=== PATIENT | female | born 1950 | race Caucasian/White ===

== ENCOUNTER → 2019-12-04 09:19 | Outpatient (CLI) | payer MEDICARE, SELFPAY ==
--- NOTE | ~2019-12-04 | DEXA_ITS ---
Bone Density Report Name: Brenna Wilson Age: 69 Sex: Female Ethnicity: White Date of : 1950 Indication: postmenopausal osteoporosis; height loss; Referring Provider: Zack, Sidney Yin Study: Bone densitometry was performed. Exam Date: December 04, 2019 Accession number: [id number] Bone Density: Region BMD T-score Z-score Classification AP Spine (L1-L4) 0.655 -3.6 -1.5 Osteoporosis Femoral Neck (Left) 0.684 -1.5 0.3 Osteopenia Total Hip (Left) 0.688 -2.1 -0.6 Osteopenia Femoral Neck (Right) 0.655 -1.7 0.0 Osteopenia Total Hip (Right) 0.691 -2.1 -0.6 Osteopenia Total Hip Mean 0.690 -2.1 -0.6 Osteopenia World Health Organization criteria for BMD impression classify patients as: Normal (T-score at or above -1.0), Osteopenia (T-score between -1.0 and -2.5), or Osteoporosis (T-score at or below -2.5). 10-year Fracture Risk: FRAX not reported because: Some T-score for Spine Total or Hip Total or Femoral Neck at or below -2.5 Previous Exams: Region Exam Age BMD T-score BMD Change BMD Change Date g/cm2 vs Baseline vs Previous AP Spine(L1-L4) 12/04/2019 69 0.655 -3.6 -0.012 -0.012 01/28/2017 66 0.666 -3.5 Total Hip(Left) 12/04/2019 69 0.688 -2.1 -0.015 -0.015 01/28/2017 66 0.703 -2.0 Total Hip(Right) 12/04/2019 69 0.691 -2.1 -0.031* -0.031* 01/28/2017 66 0.722 -1.8 *Denotes significance at 95% confidence level, LSC for AP Spine = 0.022 g/cm2, LSC for Total Hip = 0.027 g/cm2 Clinical Information Provided by Patient: Patient maximum height was 62 Menopause Age: 50 Drinks caffeinated beverages Onset of menses at age 13 Number of children 2 Impression: The patient has osteoporosis, based on the Total Spine T-score. The BMD for the Total Hip(Right) decreased, changing by -0.031 since the last DXA exam. Discussion: INCREASED RISK OF FRACTURE. BONE DENSITY IS UNDESIRABLY LOW AT ONE OR MORE SKELETAL SITES, CONSISTENT WITH POSTMENOPAUSAL OSTEOPOROSIS. This patient's lowest T-score meets the World Health Organization's (WHO) criteria for osteoporosis at one or more sites (T-score -2.5 or below). In untreated patients, the risk of osteoporotic fracture increases approximately two-fold for each 1.0 SD decrease in T-score. Low bone density is not the only risk factor for fracture; also consider factors such as patient's age, frailty or poor health, risk of falling, risk of injury, previous oste
== END ==
PROVIDERS: PCP Internal Medicine; Visit Provider Internal Medicine
DX: M81.0 Age-related osteoporosis without current pathological fracture (principal); M85.89 Other specified disorders of bone density and structure, multiple sites
CPT/HCPCS: 77080

== ENCOUNTER → 2022-04-30 14:42 | Outpatient (CLI) | payer MEDICARE, SELFPAY ==
--- NOTE | ~2022-04-30 | MM_ITS ---
EXAMINATION: MM screening nick BI w shea HISTORY: Screening TECHNIQUE: Craniocaudal and mediolateral oblique 3-D tomosynthesis images were obtained and synthetic 2-D images were generated. CAD analysis was submitted and interpreted. COMPARISON: 02/11/2018 BREAST PARENCHYMAL COMPOSITION: The breasts are almost entirely fatty. FINDINGS: There is no evidence of suspicious mass, calcification, or architectural distortion to sugg est malignancy in either breast. There has been no suspicious interval change. IMPRESSION: 1. No mammographic evidence of malignancy. 2. Recommend routine screening mammography in one year. BI-RADS Category 1: Negative Reviewed, dictated and finalized at location A. APPLICATION DEVELOPER
--- NOTE | ~2022-04-30 | DEXA_ITS ---
Bone Density Report Name: LION BURGESS Age: 72 Sex: Female Ethnicity: White Date of : 1950 Indication: postmenopausal osteoporosis; height loss; Referring Provider: LAURITA, CARMEN Yin Study: Bone densitometry was performed. Exam Date: April 30, 2022 Accession number: [id number] Bone Density: Region BMD T-score Z-score Classification AP Spine (L1-L4) 0.672 -3.4 -1.2 Osteoporosis Femoral Neck (Left) 0.700 -1.3 0.6 Osteopenia Total Hip (Left) 0.685 -2.1 -0.5 Osteopenia Femoral Neck (Right) 0.686 -1.5 0.4 Osteopenia Total Hip (Right) 0.681 -2.1 -0.5 Osteopenia Total Hip Mean 0.683 -2.1 -0.5 Osteopenia World Health Organization criteria for BMD impression classify patients as: Normal (T-score at or above -1.0), Osteopenia (T-score between -1.0 and -2.5), or Osteoporosis (T-score at or below -2.5). 10-year Fracture Risk: FRAX not reported because: Some T-score for Spine Total or Hip Total or Femoral Neck at or below -2.5 Previous Exams: Region Exam Age BMD T-score BMD Change BMD Change Date g/cm2 vs Baseline vs Previous AP Spine(L1-L4) 04/30/2022 72 0.672 -3.4 0.006 0.017 12/04/2019 69 0.655 -3.6 -0.012 -0.012 01/28/2017 66 0.666 -3.5 Total Hip(Left) 04/30/2022 72 0.685 -2.1 -0.018 -0.003 12/04/2019 69 0.688 -2.1 -0.015 -0.015 01/28/2017 66 0.703 -2.0 Total Hip(Right) 04/30/2022 72 0.681 -2.1 -0.041* -0.010 12/04/2019 69 0.691 -2.1 -0.031* -0.031* 01/28/2017 66 0.722 -1.8 *Denotes significance at 95% confidence level, LSC for AP Spine = 0.022 g/cm2, LSC for Total Hip = 0.027 g/cm2 Clinical Information Provided by Patient: Has used the following medications: Vitamin D Patient maximum height was 62 Menopause Age: 50 Drinks caffeinated beverages Onset of menses at age 13 Number of children 2 Impression: The patient has osteoporosis, based on the Total Spine T-score. No significant bone loss was observed. Discussion: INCREASED RISK OF FRACTURE. BONE DENSITY IS UNDESIRABLY LOW AT ONE OR MORE SKELETAL SITES, CONSISTENT WITH POSTMENOPAUSAL OSTEOPOROSIS. This patient's lowest T-score meets the World Health Organization's (WHO) criteria for osteoporosis at one or more sites (T-score -2.5 or below). In untreated patients, the risk of osteoporotic fracture increases approximately two-fold for each 1.0 SD decre
== END ==
PROVIDERS: PCP Internal Medicine; Visit Provider Internal Medicine
DX: Z12.31 Encounter for screening mammogram for malignant neoplasm of breast (principal); M81.0 Age-related osteoporosis without current pathological fracture; M85.852 Other specified disorders of bone density and structure, left thigh; M85.851 Other specified disorders of bone density and structure, right thigh
CPT/HCPCS: 77063; 77067; 77080

== ENCOUNTER 2023-01-12 09:01 | Emergency (ER) | payer MEDICARE, SELFPAY ==
[2023-01-12 09:17] VITALS: BP 137/70; PULSE 63; RESP 12; TEMP 36.9; O2SAT 100
--- NOTE | 2023-01-12 09:40 | ED.WOUNDLAC ---
HPI - Wound/Laceration General Chief Complaint: Wound/Laceration Stated Complaint: Right Hand Finger Laceration Time Seen by Provider: 01/12/23 09:30 Source: patient, family, RN notes reviewed and old records reviewed Mode of arrival: ambulatory Limitations: no limitations History of Present Illness HPI narrative: 72-year-old female accompanied by presents to [facility] with complaints of laceration to her right 5th finger palmar aspect tip which occurred within the past 30 minutes prior to arrival. Patient was cutting up celery using a mandolin and sliced part of the finger tissue. Patient has 1 cm avulsion type of laceration to the distal tip perez aspect of right 5th finger with active bleeding pressure applied and bandage.Patient's tetanus is not up to date. Onset (ago): minute(s) (within past 30 minutes) Location: other (right 5th finger perez area distally) Patient tetanus UTD: No Treatments prior to arrival: bandage (pressure) Related Data Home Medications Medication Instructions Recorded Confirmed levothyroxine 100 mcg tablet 100 mcg PO DAILY 01/12/23 01/12/23 (Synthroid) Allergies Allergy/AdvReac Type Severity Reaction Status Date / Time No Known Allergies Allergy Verified 01/12/23 09:16 Review of Systems Review of Systems: CONSTITUTIONAL: Denies fever, chills, or sweats. CARDIOVASCULAR: Denies chest pain, palpitations, or edema. RESPIRATORY: Denies cough or dyspnea. SKIN: Reports laceration to right 5th finger perez aspect distally MUSCULOSKELETAL: Denies musculoskeletal pain NEUROLOGIC: Denies numbness, or weakness. All systems reviewed & are unremarkable except as noted in HPI and below PMFSH Past Medical History Medical History (Updated 01/14/23 @ 07:04 by Janet Jacobsen NP) Arthritis GERD (gastroesophageal reflux disease) Hypothyroid Osteoporosis UTI (urinary tract infection) Social History Social History (Updated 01/14/23 @ 07:01 by Janet Jacobsen NP) Smoking status: Never smoker Alcohol intake: current Alcohol use details: rare Substance use type: does not use Living arrangements: with family Occupation/Education: retired Gender identity (if verbalized by the patient): Female Comments At time of signature, agree with nursing past medical, surgical, social and family history. There is no relevant family history pertinent to the presenting complaint Exam Narrative: GENERAL: Well-appearing, well-nourished, and in no acute distress. HEAD: Normocephalic, atraumatic. NECK: Supple.no lymphadenopathy CHEST: Clear to auscultation. No respiratory distress SAO2 100% on room air. HEART: Regular rate and rhythm. No murmur heard. Normal peripheral pulses. EXTREMITIES: Normal range of motion. No edema. SKIN: Warm, dry, no rash. Reports 1cm avulsion type of laceration to the distal aspect of right 5th perez aspect finger, circulation sensation anf movility intact right 5th finger NEURO: No focal deficits. Alert and oriented x3. Course Course Level of Care: Express Care Visit Vital Signs Vital signs: Vital Signs Temperature 36.9 C 01/12/23 09:17 Pulse Rate 63 01/12/23 09:17 Respiratory Rate 12 01/12/23 09:17 Blood Pressure 137/70 01/12/23 09:17 Pulse Oximetry 100 01/12/23 09:17 Oxygen Delivery Room Air 01/12/23 09:17 Temperature 36.9 C 01/12/23 09:17 Pulse Rate 63 01/12/23 09:17 Respiratory Rate 12 01/12/23 09:17 Blood Pressure 137/70 01/12/23 09:17 Pulse Oximetry 100 01/12/23 09:17 Oxygen Delivery Room Air 01/12/23 09:17 Procedures Laceration Right 5th distal finger: Date: 01/12/23 Time: 09:50 Site: hand (Right 5th finger) Side (If applicable): right Size (cm): 1 Description: other (Avulsion of skin) Depth: simple, single layer Local Anesthetic: lidocaine 1% Amount of anesthesia used (mL): 2 Pre-repair: wound explored and ir
[2023-01-12] MEDS: TETANUS,DIPHTHERIA,AC PERTUSSIS ADULT (0.5 ML) BOOSTRIX IM (10:18)
== END 2023-01-12 10:20 | disposition home or self-care (01) ==
PROVIDERS: Emergency Provider Registered Nurse; PCP Internal Medicine
DX: S61.216A Laceration without foreign body of right little finger without damage to nail, initial encounter (principal); W27.4XXA Contact with kitchen utensil, initial encounter; Y93.G1 Activity, food preparation and clean up; Z23 Encounter for immunization; M19.90 Unspecified osteoarthritis, unspecified site; K21.9 Gastro-esophageal reflux disease without esophagitis; M81.0 Age-related osteoporosis without current pathological fracture
CPT/HCPCS: 12001; 90471; 90715; 99213; G0463

== ENCOUNTER 2023-01-23 13:28 | Emergency (ER) | payer MEDICARE, SELFPAY ==
[2023-01-23 13:37] VITALS: BP 126/55; PULSE 75; RESP 18; TEMP 36.6; O2SAT 100
--- NOTE | 2023-01-23 13:47 | ED.SKABFB ---
HPI - Skin/Abscess/Foreign Bdy General Chief complaint: Skin/Abscess/Foreign Body Stated complaint: Stitch Removal Time Seen by Provider: 01/23/23 13:47 Source: patient Mode of arrival: ambulatory Limitations: no limitations History of Present Illness HPI narrative: 72 yo F presents for suture removal. 4 sutures placed to R little finger 10 days ago after cutting herself with mandolin. No signs of infection. All systems reviewed and negative except as noted above. Related Data Home Medications Medication Instructions Recorded Confirmed levothyroxine 100 mcg tablet 100 mcg PO DAILY 01/12/23 01/23/23 (Synthroid) Allergies Allergy/AdvReac Type Severity Reaction Status Date / Time No Known Allergies Allergy Verified 01/23/23 13:36 Review of Systems Review of Systems: CONSTITUTIONAL: Denies fever, chills, or sweats. EYES: Denies visual changes, redness, or discharge. ENT: Denies rhinorrhea, congestion, sore throat, or otalgia. CARDIOVASCULAR: Denies chest pain, palpitations, or edema. RESPIRATORY: Denies cough or dyspnea. GASTROINTESTINAL: Denies abdominal pain, nausea, vomiting, or diarrhea. GENITOURINARY: Denies dysuria or hematuria. SKIN: Denies rash or itching. patient here for suture removal to right little finger. MUSCULOSKELETAL: Denies back pain, joint pain, or myalgia. NEUROLOGIC: Denies headache, numbness, or weakness. PSYCHIATRIC: Denies anxiety or depression. All other systems reviewed are negative, except as documented in HPI. PMFSH Past Medical History Medical History (Updated 01/23/23 @ 14:01 by Leigh Ann Lockett NP) Arthritis GERD (gastroesophageal reflux disease) Hypothyroid Osteoporosis UTI (urinary tract infection) Social History Social History (Updated 01/14/23 @ 07:01 by Janet Jacobsen NP) Smoking status: Never smoker Alcohol intake: current Alcohol use details: rare Substance use type: does not use Living arrangements: with family Occupation/Education: retired Gender identity (if verbalized by the patient): Female Comments At time of signature, agree with nursing past medical, surgical, social and family history. There is no relevant family history pertinent to the presenting complaint. Exam Narrative: GENERAL: This is a well-nourished, well-developed patient, in no apparent distress. HEAD: normocephalic, atraumatic. EYES: PERRL. Sclera clear/white. Vision is grossly intact. EARS: External ears normal NOSE: External nose normal NECK: Neck supple, non-tender without lymphadenopathy, masses or thyromegaly. CARDIOVASCULAR: Regular rate and rhythm without murmurs, gallops, or rubs. RESPIRATORY: Clear to auscultation. Breath sounds equal bilaterally. No wheezes, rales, or rhonchi. SKIN: warm, Dry, intact with no suspicious lesions or rash, good texture and turgor. healing laceration to distal aspect R little finger with [address] NEURO: awake, alert, and oriented to person, place and time. There were no obvious focal neurologic abnormalities. EXTREMITIES: No joint tenderness, effusion, or edema noted. Course Course Level of Care: Express Care Visit Vital Signs Vital signs: Vital Signs Temperature 36.6 C 01/23/23 13:37 Pulse Rate 75 01/23/23 13:37 Respiratory Rate 18 01/23/23 13:37 Blood Pressure 126/55 L 01/23/23 13:37 Pulse Oximetry 100 01/23/23 13:37 Oxygen Delivery Room Air 01/23/23 13:37 Temperature 36.6 C 01/23/23 13:37 Pulse Rate 75 01/23/23 13:37 Respiratory Rate 18 01/23/23 13:37 Blood Pressure 126/55 L 01/23/23 13:37 Pulse Oximetry 100 01/23/23 13:37 Oxygen Delivery Room Air 01/23/23 13:37 reviewed Procedures Other Procedure Procedure 1: Other Procedure: 4 sutures removed with tweezers and scissors without complication. no signs of infection. MDM - Skin/Abscess/Foreign Bdy MDM Narrative Medical decision making narrative: Patient is aware of diagnos
== END 2023-01-23 14:03 | disposition home or self-care (01) ==
PROVIDERS: Emergency Provider Nurse Practitioner Family; PCP Internal Medicine
DX: S61.216D Laceration without foreign body of right little finger without damage to nail, subsequent encounter (principal); W27.4XXD Contact with kitchen utensil, subsequent encounter; M19.90 Unspecified osteoarthritis, unspecified site; K21.9 Gastro-esophageal reflux disease without esophagitis; E03.9 Hypothyroidism, unspecified; M81.0 Age-related osteoporosis without current pathological fracture
CPT/HCPCS: 99211; G0463